=== PATIENT | female | born 1975 | race African-American/Black ===

== ENCOUNTER 2019-08-19 13:01 | Emergency (ER) | payer MEDICAID ==
[~2019-08-19] VITALS: Ht 182.9 cm; Wt 116.1 kg
[2019-08-19 15:03] VITALS: BP 166/79
== END 2019-08-19 16:25 | disposition left against medical advice (07) ==
LOC: ER 13:01
DX: S93.402A Sprain of unspecified ligament of left ankle, initial encounter (principal); S93.602A Unspecified sprain of left foot, initial encounter; I10 Essential (primary) hypertension
CPT/HCPCS: 73610; 73620